=== PATIENT | female | born 1940 | race Caucasian/White ===

== ENCOUNTER 2024-11-18 18:45 | Emergency (ER) | payer OTHER, SELFPAY ==
[2024-11-18 20:09] LABS: Blood Urea Nitrogen 25 mg/dl (7-17); Calcium 9.1 mg/dl (8.4-10.2); Carbon Dioxide 24 mmol/L (22-30); Chloride 107 mmol/L (98-107); Glucose 141 mg/dl (70-99); Potassium 4.1 mmol/L (3.5-5.1); Sodium 139 mmol/L (135-145); eGFR 40.30
[2024-11-18 20:10] LABS: Hematocrit 32.0 % (37.0-47.0); Hemoglobin 10.7 g/dL (12.0-16.0); Mean Corp Hgb Conc. 33.4 g/dL (33.0-37.0); Mean Corpuscular Volume 86.5 fL (81.0-99.0); Nucleated Red Blood Cells % 0 %; Platelet Count 237 10^3/uL (130-400); Red Cell Dist. Width 13.6 % (11.5-14.5)
[2024-11-18 22:17] VITALS: BMI 21.2
[2024-11-18 22:20] LABS: Urine Character Slightly Cloudy (Clear)
[2024-11-18 22:26] LABS: Urine Red Blood Cell 0-2 /HPF (0-2)
[2024-11-18 22:27] LABS: Urine White Cell >100 /HPF (0-5)
[2024-11-18 22:39] VITALS: BP 136/51
--- NOTE | 2024-11-18 22:47 | ED.GENMED ---
History of Present Illness
General
Chief Complaint: Change in Mental Status
Source: patient and family
Exam Limitations: none
Time Seen by Provider: 11/18/24 22:28
Nursing documentation reviewed up to this point in time: agreed with
History of Present Illness
History of Present Illness:
83-year-old female from the [facility] dementia unit presents with her family who received a call stating she was having behavioral changes, more aggressive than usual and they were concerned that she had a UTI
Patient is pleasant, she denies abdominal pain. She does have dementia.
Past History
Past History
ED Past Medical History: Other (A-fib, RA, OA, hypertension, dementia)
Social History
Tobacco: Non-smoker
Alcohol: None
Drug: None
Personal:
Living: alone
Family History
Family History: Other (reviewed and non-contributory)
Review of Systems
Review of Systems
Allergies reviewed?: Yes
All Other Systems: ROS reviewed and negative except as documented in HPI and ROS
Phy Exam
Physical Exam
Physical Exam:
GENERAL: No acute distress. A&O
CONSTITUTIONAL: Afebrile.
EYES: clear, conjunctivae normal
ENMT: moist mucus membranes, Pharynx nl
RESPIRATORY: Regular respirations, nonlabored, lungs clear.
CARDIOVASCULAR: Regular rate and rhythm, no murmurs, no rubs.
GI: Soft, nontender, normal BS
MUSCULOSKELETAL: Moves with ease. Well perfused.
SKIN: Warm, dry, pink
PSYCH: Normal mood and affect. Well kept, interactive and appropriate
NEUROLOGIC: Awake, alert and oriented x 2. No focal neurological deficits
Course
Orders/Labs/Results
Orders:
Orders
11/18/24 19:29
Basic Metabolic Panel Urgent
Complete Blood Count/With Diff Urgent
11/18/24 22:14
Urinalysis Reflex To Culture Urgent
Date Specimen was Collected: 11/18/24
Time Specimen was Collected: 22:12
Urine Microscopic Reflex Cult Urgent
Urine Culture Urgent
DUSTIN Source: U
Specimen Description:
Date Specimen was Collected: 11/18/24
Time Specimen was Collected: 22:12
11/18/24 22:31
Cephalexin Monohydrate [Keflex] 500 mg PO NOW STA
11/18/24 22:45
0.9% Sodium Chloride 500 ml [Nss] 500 ml IV BOLUS
11/18/24 22:46
CefTRIAXone [Rocephin] 1,000 mg IV NOW STA
Abnormal Lab Results
11/18/24 11/18/24
19:29 22:14
RBC 3.70 L 10^6/uL
(4.20-5.40)
Hgb 10.7 L g/dL
(12.0-16.0)
Hct 32.0 L %
(37.0-47.0)
MPV 11.4 H fL
(7.4-10.4)
BUN 25 H mg/dl
(7-17)
Creatinine 1.3 H mg/dL
(0.6-1.0)
Glucose 141 H mg/dl
(70-99)
Ur Occult Blood Reflex 1+ A
(Negative)
Urine Nitrite (Reflex) Positive A
(Negative)
Leukocyte Esterase Rfl 2+ A
(Negative)
Urine WBC (Reflex) >100 A /HPF
(0-5)
Urine Bacteria (Reflex) Many A
(Negative)
Urine Albumin (Reflex) 1+ A
(Neg - Trace)
11/18/24 19:29
11/18/24 19:29
Vital Signs
Initial and Last Documented VS:
Initial Vital Signs
Temp Pulse Resp Pulse Ox
98.2 F 78 18 98
11/18/24 19:15 11/18/24 19:15 11/18/24 19:15 11/18/24 19:15
Last Documented Vital Signs
Temp Pulse Resp BP Pulse Ox
98.2 F 78 18 136/51 98
11/18/24 19:15 11/18/24 19:15 11/18/24 19:15 11/18/24 22:39 11/18/24 22:51
MDM/Problems Addressed
Differential Diagnosis Includes:
UTI, dehydration
MDM/Problems Addressed:
83-year-old female from the [facility] dementia unit presents with her family who received a call stating she was having behavioral changes, more aggressive than usual and they were concerned that she had a UTI
Patient is pleasant, she denies abdominal pain. She does have dementia.
CBC with no clinically significant abnormality
CMP with no clinically significant abnormality, consistent with her CKD
UA consistent with infection
Plan: Rocephin 1 g IV now then discharge on cephalexin back to alf
*Pulse Oximetry
SaO2: 98
Oxygen Mode of Delivery: Room air
Patient hypoxic: no
*Critical Care Note
Total Time (30-74mins, 75-104mins- exclusive of procedures): Not Applicable
ED Attending Note
-
Portions of this chart may have been created with voice recognition software.� Occasional wrong word or��sound alike� substitutions may have occurred due to the inherent limitations of voice recognition software.
Discharge Plan
Departure
Patient Disposition: Skilled Nursing/SNF
Date of Disposition: 11/18/24
Time of Disposition: 22:56
Condition: Good
Discharge Problem:
Acute lower urinary tract infection
Instructions: Urinary tract infection (DC)
Prescriptions:
New
cephalexin 500 mg capsule
500 mg PO TID 7 Days Qty: 21 0RF
No Action
prednisone 5 mg tablet
2.5 mg PO DAILY
amlodipine 5 mg tablet
5 mg PO HS
bisoprolol fumarate 5 mg tablet
2.5 mg PO HS
flecainide 50 mg tablet
50 mg PO BID
hydroxychloroquine 200 mg tablet
200 mg PO DAILY
Eliquis 5 mg tablet
5 mg PO BID
pantoprazole 20 mg Tablet,Delayed Release (Dr/Ec)
20 mg PO DAILY Qty: 30 0RF
risperidone 0.5 mg Tablet
0.5 mg PO HS PRN (Reason: agitation) Qty: 30 0RF
Referrals:
John Washburn, [Family Provider] - Follow up in 5-7 days
Activity Restrictions/Additional Instructions:
Ms. Cummings was given 500 ml IV fluids, Rocephin 1 gram IV.
Prescription for Keflex 500 mg TID x 7 days was sent back with her.
Encourage po fluids.
Interventions
Interventions:
*Risk Screen - Suicide Last Done: 11/18/24 19:15
*General Assessment Last Done: 11/18/24 19:15
*Neglect/Abuse Screening Last Done: 11/18/24 19:15
*ED- Fall Risk Assessment Last Done: 11/18/24 22:18
*ED COVID-19 Vaccine History Last Done: 11/18/24 22:18
*Nursing Disposition Last Done: 11/19/24 01:35
ED- Pulmonary Assessment Last Done: 11/18/24 22:25
ED-Psychological Assessment Last Done: 11/18/24 22:25
ED- Neurological Assessment Last Done: 11/18/24 22:18
ED- Cardiac Assessment Last Done: 11/18/24 22:25
ED Swallowing Screen Last Done: 11/18/24 22:18
Discharge Date and Time
Discharge Date/Time: 11/19/24 01:35
Print Language: PERSIAN
[2024-11-18] MEDS: ROCEPHIN 1000 MG IV (23:04)
[2024-11-18] MEDS: NSS 500 IV (23:09)
== END 2024-11-19 01:35 ==
LOC: EMR 18:45
PROVIDERS: Emergency Medicine; Registered Nurse; EMERGENCY PHYSICIAN Emergency Medicine; FAMILY PHYSICIAN Family Medicine
DX: N39.0 Urinary tract infection, site not specified (principal); F03.90 Unspecified dementia, unspecified severity, without behavioral disturbance, psychotic disturbance, mood disturbance, and anxiety; I10 Essential (primary) hypertension; I48.91 Unspecified atrial fibrillation
CPT/HCPCS: 96374; 96361; 99284; 80048; 81003; 81015; 85025; 87077; 87086